=== PATIENT | female | born 1955 | race Caucasian/White ===

== ENCOUNTER 2021-02-06 16:04 | Emergency (ER) | payer OTHER | END 2021-02-06 17:15 | disposition home or self-care (01) | LOC: ER1 16:04 | DX: S46.912A Strain of unspecified muscle, fascia and tendon at shoulder and upper arm level, left arm, initial encounter (principal); I10 Essential (primary) hypertension; E11.9 Type 2 diabetes mellitus without complications; Z88.1 Allergy status to other antibiotic agents; W19.XXXA Unspecified fall, initial encounter; Y92.009 Unspecified place in unspecified non-institutional (private) residence as the place of occurrence of the external cause | CPT/HCPCS: 73030; 99283 ==

== ENCOUNTER → 2021-03-24 | Outpatient (CLI) | payer OTHER | LOC: KOH-I 14:34 | DX: M54.9 Dorsalgia, unspecified (principal); M54.2 Cervicalgia; R05 Cough; M47.812 Spondylosis without myelopathy or radiculopathy, cervical region; M47.816 Spondylosis without myelopathy or radiculopathy, lumbar region | CPT/HCPCS: 71046; 72050; 72070; 72100 ==